=== PATIENT | female | born 1965 | race Caucasian/White ===

== ENCOUNTER 2017-01-30 15:41 | Outpatient (CLI) | payer OTHER ==
--- NOTE | 2017-02-02 09:04 | Mammography Report ---
DIGITAL SCREENING MAMMOGRAM: 01/30/2017 CLINICAL INDICATION: A 51-year-old with history of late childbearing for screening. COMPARISON: 11/2015, 03/2014, 02/2013, 10/2011. TECHNIQUE: Routine CC and MLO projections were obtained of the breasts. Bilateral laterally exaggerated craniocaudal views. FINDINGS: Parenchymal tissue within both breasts is heterogeneously dense, which may lower the sensitivity of mammography; however, there are no dominant masses, suspicious microcalcifications, or secondary signs of malignancy. In comparison to the previous studies, there are no significant changes. IMPRESSION: NO MAMMOGRAPHIC EVIDENCE OF MALIGNANCY. NO SIGNIFICANT INTERVAL CHANGES. RECOMMENDATION: Screening mammography is recommended annually. BIRADS category 1 negative. STANDARD QUALIFYING STATEMENTS 1. This examination was reviewed with the aid of Computed-Aided Detection (CAD). 2. A negative or benign imaging report should not delay biopsy if clinically suspicious findings are present. Consider surgical consultation if warranted. More than 5% of cancers are not identified by imaging. 3. Dense breasts may obscure an underlying neoplasm. MTDD
== END 2017-01-30 15:42 | disposition home or self-care (01) ==
LOC: DI 15:41
PROVIDERS: ATTEND Obstetrics & Gynecology
DX: Z12.39 Encounter for other screening for malignant neoplasm of breast (principal)
CPT/HCPCS: 77067

== ENCOUNTER 2018-04-04 07:37 | Outpatient (CLI) | payer OTHER ==
--- NOTE | 2018-04-04 09:19 | Mammography Report ---
Reason: WELL ADULT Procedure Date: 04/04/2018 Accession Number: [id number] / [id number] Procedure: TOM - Screening Mammo w/Omi CPT Code: FULL RESULT: EXAM: Screening Mammo w/Omi DATE: 04/04/2018 8:14 AM CLINICAL HISTORY: Routine screening TECHNIQUE: Bilateral CC and MLO views were obtained. COMPARISON: 01/30/2017, 12/15/2015, 03/29/14 and 02/26/2013 FINDINGS: The breast tissue is heterogeneously dense. No solid significant interval change. No suspicious masses, clustered microcalcifications, or regions of architectural distortion are identified. IMPRESSION: Benign findings RECOMMENDATION: Routine annual screening unless otherwise clinically indicated. BIRADS CATEGORY 2: Benign findings STANDARD QUALIFYING STATEMENTS: 1. This examination was not reviewed with the aid of Computer-Aided Detection (CAD). 2. A negative or benign imaging report should not preclude biopsy if clinically suspicious findings are present. 3. Dense breasts may obscure an underlying neoplasm. 4. This examination was reviewed with the aid of 3D breast imaging (tomosynthesis).
== END 2018-04-04 07:38 | disposition home or self-care (01) ==
LOC: DI 07:37
PROVIDERS: ATTEND Obstetrics & Gynecology
DX: Z12.31 Encounter for screening mammogram for malignant neoplasm of breast (principal)
CPT/HCPCS: 77063; 77067

== ENCOUNTER 2020-08-20 16:34 | Outpatient (CLI) | payer OTHER ==
--- NOTE | 2020-08-20 17:01 | XRAY Report ---
PROCEDURE: Foot 3 View LT INDICATIONS: PAIN IN LEFT FOOT TECHNIQUE: 3 views of the foot were acquired. COMPARISON: None FINDINGS: Bones: No fractures or dislocations. No suspicious bony lesions. Soft tissues: No tibiotalar joint effusion. Achilles tendon appears normal. IMPRESSION: Matter no fracture Reviewed by: Mildred Parra MD on 08/20/2020 5:00 PM PDT Approved by: Mildred Parra MD on 08/20/2020 5:00 PM PDT Station ID: [id number]
== END 2020-08-20 16:35 | disposition home or self-care (01) ==
LOC: DI.S 16:34
PROVIDERS: ATTEND Physician Assistant
DX: M79.672 Pain in left foot (principal)

== ENCOUNTER 2020-12-21 15:02 | Outpatient (CLI) | payer OTHER ==
--- NOTE | 2020-12-30 08:49 | Mammography Report ---
BILATERAL DIGITAL SCREENING MAMMOGRAM 3D/2D WITH EXAGGERATED CC: 12/21/2020 CLINICAL: Routine screening. Comparison is made to exams dated: 04/04/2018 mammogram, 04/04/2018 mammogram, and 01/30/2017 mammogra m - [facility]. The tissue of both breasts is heterogeneously dense. This may lowe r the sensitivity of mammography. No significant masses, calcifications, or other findings are seen in either breast. There has been no significant interval change. IMPRESSION: NEGATIVE There is no mammographic evidence of malignancy. A 1 year screening mammogram is recommended. This exam was interpreted at Station ID: [id number]. NOTE: For mammograms, a report in lay terms will be sent to the patient. Approximately 15% of breast malignancies will not be visualized mammographically. In the management of a palpable breast mass, a negative mammogram must not discourage biopsy of a clinically suspicious lesion. Electronically Signed By: Wagner Bryant M.D. ddp/penrad:12/29/2020 15:34:30 ACR BI-RADS Category 1: Negative 3341F PARENCHYMAL PATTERN: (D) - The breast(s) demonstrate(s) heterogeneously dense fibroglandular parchrissy ma. BI-RADS CATEGORY: (1) - 1 RECOMMENDATION: (ANNUAL) - Recommend routine annual screening mammography. [id number] 1 year screening LATERALITY: (B)
== END 2020-12-21 15:03 | disposition home or self-care (01) ==
LOC: DI.S 15:02
PROVIDERS: ATTEND Physician Assistant
DX: Z12.31 Encounter for screening mammogram for malignant neoplasm of breast (principal)

== ENCOUNTER 2022-07-17 11:39 | Emergency (ER) | payer OTHER ==
--- NOTE | 2022-07-17 11:52 | ED Physician Documentation ---
PD HPI UPPER EXT INJURY - Stated complaint Stated Complaint: LT PINKY INJURY - History obtained from History obtained from: Patient - History of Present Illness Location: Left, Finger Type of injury: Crush (The patient was helping her load furniture into a pickup and her finger was squashed between the furniture and the metal of the tailgate. Pain and bruising in the area. No other injury.) Where injury occurred: Home Timing - onset: How many minutes ago (20), Today Timing - details: Abrupt onset, Still present Associated symptoms: Swelling, Discolored (brusing at PIP joint) Similar symptoms before: Has not had sx before Review of Systems Skin: denies: Abrasion (s), Laceration (s) Neurologic: denies: Focal weakness, Numbness PD PAST MEDICAL HISTORY - Past Medical History Cardiovascular: Other Respiratory: None Endocrine/Autoimmune: None GI: None : None HEENT: None Psych: None Musculoskeletal: None Derm: Other - Past Surgical History /ATTRACTION ATTENDANT: Oophrectomy - Present Medications Home Medications: Ambulatory Orders Medication Instructions Recorded Confirmed Cholecalciferol (Vitamin D3) 400 unit PO DAILY 12/25/12 12/25/12 [Vitamin D] Multivitamin [Multi-Day Vitamins] 1 each PO DAILY 12/25/12 12/25/12 Sulfamethoxazole/Trimethoprim 1 each PO BID 12/25/12 12/25/12 [Bactrim 400-80 mg Tablet] - Allergies Allergies/Adverse Reactions: Allergies Allergy/AdvReac Type Severity Reaction Status Date / Time hydrocodone AdvReac Nausea Verified 07/17/22 11:55 oxycodone AdvReac Nausea Verified 07/17/22 11:55 - Social History Smoking Status: Never smoker PD ED PE NORMAL - Vitals Vital signs reviewed: Yes - General General: Alert and oriented X 3, No acute distress, Well developed/nourished - Derm Derm: Normal color, Warm and dry - Extremities Extremities: Other (Left little finger with tenderness bruising and some swelling at the PIP joint and middle phalanx. No gross deformity. Limited flexion due to pain. No malrotation noted. Normal color and sensation and cap refill at the tip.) - Neuro Neuro: Alert and oriented X 3, No motor deficit, No sensory deficit, Normal speech Results - Vitals Vitals: Vital Signs - 24 hr 07/17/22 11:52 Temperature 37 C Heart Rate 71 Respiratory 16 Rate Blood Pressure 120/7 L O2 Saturation 100 Oxygen O2 Source Room air - Rads (name of study) little finger Relevant Findings:: Prelim report reviewed, EMP independent interpretation of test (irregularity at the end of proximal phalanx, arthritic versus nondisplaced neck fracture of phalanx.), See rad report PD Medical Decision Making - ED course Complexity details: reviewed results, considered differential (contusion with swelling versus occult/mild fracture. I will call pt to update on Radiology report (possible fracture at phalanx). Same treatment but for sure longer duration. ), d/w patient Departure - Departure Disposition: Home, Self Care Clinical Impression: Finger contusion Qualifiers: Encounter type: initial encounter Finger: little finger Damage to nail status: without damage Laterality: left Qualified Code(s): S60.052A - Contusion of left little finger without damage to nail, initial encounter Condition: Stable Record reviewed to determine appropriate education?: Yes Instructions: ED Contusion Finger Follow-Up: ALANA CHUN PA [Primary Care Provider] - Comments: I do not see any fractures on your x-ray. The radiology report is still pending. We can call if there is any amendment to it. At this point it appears to be predominantly bruising from the impact. It will be sore and swollen and should improve over several days to a week or so. Use the finger splint to help protect it. Ice elevate and rest to help with swelling. Tylenol ibuprofen if needed for pains. Discharge Date/Time: 07/17/22 12:43
[2022-07-17 11:54] VITALS: BP 120/7
--- OUTSIDE RECORDS SUMMARY | 2022-07-17 12:30 | EXTERNAL MEDICAL SUMMARY RPT | Continuity of Care Document ---
Author Name Unknown Address [address] [place] [address] Phone Organization [facility] Address [address] [place] [address] Phone Care Team Providers Care Nutrition Director Name Role Phone Unavailable Unavailable Unavailable Racquel Murray Unavailable Unavaila Zoila Pérez Lpn Unavailable Unavailable Raeligh, Provider Unavailable Unavailable Medications date description facility 2022-05-23 00:00 No Known Medications All 2022-05-23 00:00 No Known Medications All 2022-05-23 00:00 No Known Medications All Problems date description facility 2022-05-23 00:00 Screening for malignant neoplas m of cervix All 2022-05-23 00:00 Screening for malignant neoplas m of cervix All 2022-05-23 00:00 Screening for malignant neoplas m of cervix All 2022-05-23 00:00 Gynecologic examination All 2022-05-23 00:00 Gynecologic examination All 2022-05-23 00:00 Gynecologic examination All 2022-05-23 00:00 Screening for malignant neoplas ms of the cervix All 2022-05-23 00:00 Screening for malignant neoplas ms of the cervix All 2022-05-23 00:00 Screening for malignant neoplas ms of the cervix All 2022-05-23 00:00 Encounter for gyneco logical examination (general) (routine) without abnormal findings All 2022-05-23 00:00 Encounter for gyneco logical examination (general) (routine) without abnormal findings All 2022-05-23 00:00 Encounter for gyneco logical examination (general) (routine) without abnormal findings All 2022-05-23 00:00 Encounter for screening for mal ignant neoplasm of cervix All 2022-05-23 00:00 Encounter for screening for mal ignant neoplasm of cervix All 2022-05-23 00:00 Encounter for screening for mal ignant neoplasm of cervix All Procedures date description facility 2022-05-23 00:00 Visit Code Hold All 2022-05-23 00:00 Visit Code Hold All 2022-05-23 00:00 Visit Code Hold All 2022-05-23 00:00 PAP and HPV All 2022-05-23 00:00 PAP and HPV All 2022-05-23 00:00 PAP and HPV All Results/Labs test date author facility value unit interpretation Result panel 1 (unknown) (no date) (unknown) All (no value) (units unknown) (unknown) Result panel 2 (unknown) (no date) (unknown) All (no value) (units unknown) (unknown) Social History date description facility 2022-05-23 00:00 Never smoker All 2022-05-23 00:00 Never smoker All 2022-05-23 00:00 Never smoker All Vital Signs date measurement value units 2022-05-23 00:00 BMI 23.84 kg/m2 2022-05-23 00:00 BP_diastolic 76 mmHg 2022-05-23 00:00 BP_systolic 130 mmHg 2022-05-23 00:00 height_metric 176.53 cm 2022-05-23 00:00 height_standard 69.5 in 2022-05-23 00:00 temperature_metric 36.72 C 2022-05-23 00:00 temperature_standard 98.1 F 2022-05-23 00:00 weight_metric 74.03 kg 2022-05-23 00:00 weight_standard 163.2 lb
--- NOTE | 2022-07-17 12:40 | XRAY Report ---
PROCEDURE: Finger(s) LT INDICATIONS: crush injury little finger TECHNIQUE: AP hand, 2 views of the fifth finger(s) acquired. COMPARISON: None. FINDINGS: Bones: Questionable nondisplaced linear lucency across the head of the fifth proximal phalanx. Joint space remains normal. Soft tissues: No suspicious soft tissue calcifications or masses. No foreign bodies in the soft tiss ue. IMPRESSION: Possible nondisplaced fifth proximal phalanx head fracture. Correlate with point tenderness. No other fractures are seen. Reviewed by: Nirali Mott MD on 07/17/2022 11:39 AM RODRÍGUEZ Approved by: Nirali Mott MD on 07/17/2022 11:39 AM RODRÍGUEZ Station ID: [id number]
== END 2022-07-17 12:43 | disposition home or self-care (01) ==
LOC: ED 11:39
DX: S60.052A Contusion of left little finger without damage to nail, initial encounter (principal); W23.1XXA Caught, crushed, jammed, or pinched between stationary objects, initial encounter; Y93.89 Activity, other specified; Y92.812 Truck as the place of occurrence of the external cause
CPT/HCPCS: 99283

== ENCOUNTER 2023-01-18 14:14 | Outpatient (CLI) | payer OTHER ==
--- NOTE | 2023-01-19 10:57 | Mammography Report ---
BILATERAL DIGITAL SCREENING MAMMOGRAM 3D/2D: 01/18/2023 CLINICAL: Routine screening. Comparison is made to exams dated: 12/21/2020 mammogram, 04/04/2018 mammogram, 01/30/2017 mammogram, mammogram, 04/02/2016 mammogram, and 12/15/2015 mammogram - [facility]. Both breasts are heterogeneously dense, which may obscure small masses (category c / 51-75% glandular tissue). No significant masses, calcifications, or other findings are seen in either breast. IMPRESSION: NEGATIVE There is no mammographic evidence of malignancy. A 1 year screening mammogram is recommended. Based on the Tyrer Cuzick model (a risk assessment model) the patients lifetime risk is 13.2% and he r 10 year risk is 5.1%. According to the ACR, ACS, and NCCN guidelines, an annual breast MRI exam olamide ng with mammogram is recommended if the patients lifetime risk is 20% or greater. This exam was interpreted at Station ID: [id number]. NOTE: For mammograms, a report in lay terms will be sent to the patient. Approximately 15% of breast malignancies will not be visualized mammographically. In the management of a palpable breast mass, a negative mammogram must not discourage biopsy of a clinically suspicious lesion. Electronically Signed By: Selma Albert M.D., PH.D apty/merle:01/18/2023 16:12:31 letter sent: No_Letter ACR BI-RADS Category 1: Negative 3341F PARENCHYMAL PATTERN: (D) - The breast(s) demonstrate(s) heterogeneously dense fibroglandular mitchel wheeler. BI-RADS CATEGORY: (1) - 1 Mammogram [id number] 1 year screening LATERALITY: (B)
== END 2023-01-18 14:15 | disposition home or self-care (01) ==
LOC: DI.S 14:14
PROVIDERS: ATTEND Physician Assistant
DX: Z12.31 Encounter for screening mammogram for malignant neoplasm of breast (principal); R92.333 Mammographic heterogeneous density, bilateral breasts